=== PATIENT | female | born 1955 | race Caucasian/White ===

== ENCOUNTER → 2016-08-08 | Outpatient (CLI) | payer OTHER | END | disposition home or self-care (01) | LOC: C.PAPS 16:08 | PROVIDERS: ATTEND Family Medicine | DX: Z12.4 Encounter for screening for malignant neoplasm of cervix (principal) ==

== ENCOUNTER → 2017-02-03 | Outpatient (CLI) | payer OTHER ==
[2017-02-03 13:42] LABS: CHOLESTEROL/HDL RATIO 4.4
== END | disposition home or self-care (01) ==
LOC: C.LABMFLN 09:10
PROVIDERS: ATTEND Family Medicine
DX: E78.5 Hyperlipidemia, unspecified (principal)

== ENCOUNTER → 2017-08-23 | Outpatient (CLI) | payer OTHER ==
--- NOTE | 2017-08-23 16:41 | DIAGNOSTIC IMAGING REPORT ---
MRI OF THE RIGHT KNEE CLINICAL HISTORY: Right knee pain of several months duration. COMPARISON STUDY: No priors. TECHNIQUE: MRI of the right knee was performed utilizing proton density, T1, and T2-weighted sequences in the axial, sagittal, coronal planes. IV contrast was not administered for this examination. Note that interpretation is suboptimal without plain film correlate. FINDINGS: Menisci: The medial and lateral menisci are intact. Ligaments: The anterior and posterior cruciate ligaments are intact. There is fluid seen on both sides of the medial collateral ligament. The fibers are intact and this suggests grade 1 injury. The lateral collateral complex is within normal limits. Extensor mechanism: The extensor mechanism is intact. Hoffa's fat pad is normal in appearance. Articular cartilage and bone: The articular cartilage is intact and well maintained all 3 compartments. Normal marrow signal is preserved of the visualized bony structures. Joint effusion: None Soft tissues: The musculature surrounding the knee joint is normal in bulk and signal intensity. Mild soft tissue edema is suggested around the insertion of the medial head of the gastrocnemius tendon. IMPRESSION: 1. There is no evidence of meniscal injury in the right knee. The cruciate ligaments and the lateral collateral ligament complex are preserved. 2. Findings suggest grade 1 injury of the medial collateral alignment. 3. Mild edema is suggested around the insertion of the medial head of the gastrocnemius tendon. Correlate clinically for evidence of strain. The tendon and muscle appear intact. 4. No significant cartilage loss is identified. Electronically signed by: Douglas Powell M.D. 08/23/2017 4:39 PM Dictated Date/Time: 08/23/2017 4:33 PM
== END | disposition home or self-care (01) ==
LOC: C.MRI 14:34
DX: M25.561 Pain in right knee (principal)

== ENCOUNTER → 2017-10-25 | Outpatient (CLI) | payer OTHER ==
--- NOTE | 2017-10-26 07:51 | MAMMOGRAPHY REPORT ---
BILATERAL DIGITAL DIAGNOSTIC MAMMOGRAM TOMOSYNTHESIS WITH CAD AND TARGETED BILATERAL ULTRASOUND: 10/25 CLINICAL HISTORY: 62-year-old woman presents at time of annual bilateral screening examination. She recently underwent ultrasound-guided core biopsy of a mass in the 12:00 to 1:00 left breast, which mohawk elded benign pathology results and a six-month follow-up was also recommended. She has a remote hist ory of right breast excisional biopsy which the patient reports yielded atypia. Pathology reports ar e not currently available and are being requested. TECHNIQUE: Bilateral breast tomosynthesis in addition to standard 2D mammography was performed. Spot magnification right CC and MLO views were also obtained. Current study was also evaluated with a [employer] Learning[employer] Aided Detection (CAD) system. COMPARISON: Comparison is made to exams dated: 03/06/2017 mammogram, 02/21/2017 ultrasound, 02/14/2017 m ammogram, 08/15/2016 mammogram, 07/14/2015 mammogram, and 06/30/2014 [place] [facility] [place] BREAST COMPOSITION: There are scattered areas of fibroglandular density in both breasts. FINDINGS: There is a stable metallic biopsy marker clip in the 1:00 anterior left breast, denoting t he site of recent benign ultrasound-guided core biopsy. There are stable circumscribed subcentimeter masses scattered in the left breast both medially and laterally. A benign coarse calcification and stable benign-appearing round microcalcifications. No obvious spiculated or irregular mass, asymmetr y, area of architectural distortion or suspicious calcifications identified in the left breast. There are possible faint clustered amorphous microcalcifications and an associated focal asymmetry wi th architectural distortion in the upper outer anterior right breast for which additional spot magnif ication views and ultrasound were performed. The spot magnification views demonstrate very faint virginia rphous microcalcifications associated with an area of architectural distortion located 4 cm from the nipple in the right upper outer quadrant. The calcifications are better visualized on the full-field views, but very faint to visualize and difficult to measure, approximately 7 mm in diameter. No oth er obvious masses, calcifications, areas of architectural distortion or asymmetries identified in the right breast. Targeted ultrasound was performed in the left 12:00 to 1:00 breast to reevaluate the biopsied benign mass. It is no longer identified, concordant with the benign pathology results and no further follow -up is needed at this time. Additional targeted ultrasound was performed in the upper outer anterior right breast to assess for t he focal asymmetry with associated calcifications and distortion. There is an ill-defined isoechoic to hypoechoic mass with associated internal punctate reflectors and evidence of architectural distort ion in real-time scanning in the 11:00 right breast, 1 cm from the nipple, thought to correlate with the mammographic finding. Portions are ill-defined and therefore this lesion is difficult to measure but it is approximately 1.5 x 0.7 x 1.2 cm. This is suspicious for malignancy and definitive charac terization with an ultrasound-guided core biopsy including specimen radiography is recommended. In t he 9:00 right breast, 2 cm from the nipple, there is a small cluster of cysts versus cyst with thin i nternal nonvascular septations measuring 3.8 x 3.4 x 4.9 mm, which has a benign sonographic appearanc e. There is a hypoechoic mass with a few angular borders but generally gently lobulated in appearanc e measuring 4.6 x 4.1 x 9.0 mm, in the 11:00 right breast, 4 cm from the nipple. There are possible associated internal punctate reflectors which could represent calcifications. Given the solid nature , ultrasound-guided core biopsy is also recommended. IMPRESSION: ACR BI-RADS CATEGORY 4: SUSPICIOUS, TARGETED ULTRASOUND ACR BI-RADS CATEGORY 4: SUSPICIO US 1. Ultrasound-guided core biopsy is recommended for an ill-defined 1.5 cm mass with associated archi tectural distortion and internal calcification in the 11:00 right breast, 1 cm from the nipple, which correlates with the mammographic findings of distortion and calcifications. Specimen radiography sh ould be performed of the core biopsy samples from this mass. 2. Ultrasound-guided core biopsy is also recommended for an indeterminate solid 4.6 x 9.0 mm mass in the 11:00 right breast, 4 cm from the nipple. 3. At the time of ultrasound-guided biopsies in the right breast, right axillary ultrasound should a lso be performed to assess for any abnormal lymph nodes. 4. Stable postbiopsy changes in the left breast and stable mammographic appearance of the left breas t. The previously biopsied mass is no longer identified on ultrasound. 5. If pathology results in the right breast are malignant, would recommend a bilateral breast MRI pr ior to definitive treatment, given the multiple masses bilaterally and dense breasts. These results and recommendations were discussed with the patient at the time of the exam. She tenta tively scheduled the right breast biopsies prior to leaving the department. Approximately 10% of breast cancers are not detected with mammography. A negative mammographic report should not delay biopsy if a clinically suggestive mass is present. oNla Ballard M.D. ay/:10/25/2017 16:01:06 Director Of Search Engine Optimization: Tracy CARRINGTON(Saad)(M), [facility] letter sent: Abnormal 4/5 BI-RADS Code: ACR BI-RADS Category 4: Suspicious Ultrasound BI-RADS: ACR BI-RADS Category 4: Suspici ous
== END | disposition home or self-care (01) ==
LOC: C.MAMM 12:24
PROVIDERS: ATTEND Family Medicine
DX: N63.10 Unspecified lump in the right breast, unspecified quadrant (principal)

== ENCOUNTER → 2017-11-07 | Outpatient (CLI) | payer OTHER ==
--- NOTE | 2017-11-07 10:47 | Discharge Instructions ---
Discharge Instructions Procedure Procedure Date: Nov 07, 2017. Reason for visit: RIGHT BREAST MASS x2. Discharge Discharge Date: Nov 07, 2017. Discharge Diagnosis: post right breast ultrasound guided core biopsy x 2 Instructions Activity Recommendations: Additional Limitations (see below) Return to School/Work: no limitations Recommended Home Diet: No Limitations Provider Instructions: ACTIVITY RECOMMENDATIONS: * No lifting, pushing, pulling or exercising the affected side for three days. RETURN TO SCHOOL/WORK: * You may return to work/school after the procedure, but do not perform any strenuous activities for 24 to 48 hours. MEDICATIONS: * Tylenol (two 325 mg) every four to six hours if needed for mild pain (if not allergic to Tylenol). DIET: * Resume previous diet. SPECIAL CARE INSTRUCTIONS: * Keep biopsy site dry for 24 hours. May shower after 24 hours, but do not soak (bathe) incision. * May remove Tegaderm (plastic patch) tomorrow AFTER showering. * Leave the steri-strips on for one week. Allow the steri-strips to fall off by themselves. If not off after one week, you may remove them. You may place a Bandaid crosswise over the strips, if desired. * Apply ice 10 minutes on and 10 minutes off as needed. * Wear a bra at bedtime to sleep more comfortably for 2-3 days. * Your referring physician should have the results after approximately 5 to 7 business days. * Call for unusual bleeding, fever, drainage, etc or if you have any questions call [phone] during normal business hours or after hours call Dr Ballard, . FOLLOW UP VISIT: Follow-up with Referring Physician as scheduled. Harley Campoverde Recommendations: Call your doctor if: * Temperature above 101 degrees * Pain not relieved by pain medicine ordered * There is increased drainage or redness from any incision * You have any unanswered questions or concerns. Your Doctors Instructions noted above were prepared by provider Nola Ballard. Patient Signature Section: Patient Instructions Signature Page Bri Umana Patient (or Guardian) Signature/Date: I have read and understand the instructions given to me by my caregivers. Caregiver/RN/Doctor Signature/Date: The above-named patient and/or guardian has received patient instructions on this date. + Original Patient Signature Page (only) stays with chart. Please make copy for patient.
--- NOTE | 2017-11-07 12:52 | MAMMOGRAPHY REPORT ---
SPECIMEN RIGHT BREAST: 11/07/2017 CLINICAL HISTORY: Core biopsy specimen from the mass with associated microcalcification in the 11:00 axis, 1 cm from the nipple, to ensure inclusion of microcalcification within the samples. Please refer to the report from right breast ultrasound-guided core biopsy performed at the same time for full detail. IMPRESSION: SPECIMEN Please refer to the report from right breast ultrasound-guided core biopsy performed at the same time for full detail. Nola Ballard M.D. ay/:11/07/2017 10:58:05 Truck Jumper: Tracy North, [facility]
--- NOTE | 2017-11-07 12:52 | MAMMOGRAPHY REPORT ---
ULTRASOUND GUIDED BIOPSY RIGHT BREAST: 11/07/2017 CLINICAL HISTORY: Indeterminate 5 mm mass with probable associated calcification in the 11:00 right b reast, 4 cm from the nipple. Patient presents for biopsy. Patient also underwent biopsy of a spicul ated mass with associated calcification in the 11:00 axis, 1 cm from the nipple during the same appoi ntment. Please refer to the report from right breast ultrasound-guided core biopsy performed at the same time for full detail. IMPRESSION: ULTRASOUND GUIDED BIOPSY Please refer to the report from right breast ultrasound-guided core biopsy performed at the same time for full detail. Nola Ballard M.D. ay/:11/07/2017 10:59:22 Scrap Baler: Tracy North, [facility]
--- NOTE | 2017-11-07 15:26 | MAMMOGRAPHY REPORT ---
UNILATERAL RIGHT DIGITAL DIAGNOSTIC MAMMOGRAM TOMOSYNTHESIS WITH CAD: 11/07/2017 CLINICAL HISTORY: Status post ultrasound guided core biopsy of 2 indeterminate masses in the right br east at 11:00 1 cm and 4 cm from the nipple. Patient has a history of biopsy-proven atypia in the ri ght breast and recent ultrasound-guided core biopsy in the left breast which yielded benign results. Please refer to the report from right breast ultrasound-guided core biopsy performed at the same time for full detail. IMPRESSION: POST PROCEDURE IMAGING FOR MARKER PLACEMENT Please refer to the report from right breast ultrasound-guided core biopsy performed at the same time for full detail. Approximately 10% of breast cancers are not detected with mammography. A negative mammographic report should not delay biopsy if a clinically suggestive mass is present. Nola Ballard M.D. ay/:11/07/2017 13:17:31 Fingerprint Clerk: Tracy North, [facility] BI-RADS Code: Post Procedure Imaging For Marker Placement
--- NOTE | 2017-11-07 15:26 | MAMMOGRAPHY REPORT ---
THIS REPORT HAS BEEN AMENDED. MULTIPLE ULTRASOUND GUIDED BIOPSIES RIGHT BREAST: 11/07/2017 CLINICAL HISTORY: Suspicious 1.5 cm mass with associated architectural distortion and calcification i n the 11:00 right breast 1 cm from the nipple and indeterminate 5 x 9 mm hypoechoic mass with possibl e associated microcalcification in the 11:00 right breast, 4 cm from the nipple. Patient presents fo r right breast ultrasound-guided core biopsy 2. COMPARISON: Comparison is made to exams dated: 11/07/2017 specimen, 10/25/2017 mammogram - [facility], 03/06/2017 mammogram, 02/21/2017 ultrasound, 07/14/2015 mammogram, and 06/30/2014 mamm ogram - [facility]. PATIENT CONSENT: The procedure, risks and benefits were discussed with the patient and informed conse nt was obtained both verbally and in writing. Specific risks to this procedure include: bleeding, in fection, puncture of adjacent structure, nontarget biopsy, sampling error, pain, metal allergy and me dication reaction. A time out was performed and the right breast was agreed as the site of biopsy. PROCEDURE DESCRIPTION: Prior to biopsy, targeted ultrasound was performed in the right axilla, which demonstrates a morphologically normal lymph node with cortical thickness within the range of normal a t 2.3 mm. No suspicious lymphadenopathy was identified. Then repeat targeted ultrasound was performed in the 11:00 right breast. The spiculated and irregula r hypoechoic mass with associated architectural distortion and calcification is again identified 1 cm from the nipple, and the oval hypoechoic mass with associated calcification in the 11:00 right breas t, 4 cm from the nipple is also again identified. The dominant spiculated mass is the first target f or biopsy. The skin was prepped and draped in the usual sterile fashion. While visualizing the spiculated 1.5 c m mass with associated calcification, subcutaneous and intraparenchymal 1% buffered lidocaine, with a nd without epinephrine, was administered as local anesthesia. A skin incision was made. Through the incision, 4 samples were taken with a 12 gauge SeaMicro biopsy device. A specimen radiograph was obtain ed of the core biopsy samples, which does demonstrate microcalcifications with in the specimen, confi rming adequate tissue sampling. Therefore a ribbon shaped metallic marker was placed at the biopsy s ite. Hemostasis was achieved after manual compression but bruising and ecchymosis was already noted, superior to the biopsy incision during the biopsy. The patient tolerated the procedure well and there was no immediate complication. Then the smaller 5 x 9 mm hypoechoic mass with probable associated calcification in the 11:00 right b reast, 4 cm from the nipple was identified and targeted for biopsy. Additional 1% buffered lidocaine, with and without epinephrine, was administered as local anesthesia. A skin incision was made. Throu gh the incision, 6 samples were taken with a 14 gauge Achieve biopsy device. A wing shaped metallic m arker was placed at the biopsy site. Hemostasis was achieved after manual compression. The patient to lerated the procedure well and there was no immediate complication. All of the samples were sent to the pathology department in an appropriately labeled containers. Postprocedure right CC and ML tomosynthesis images were obtained. A new ribbon-shaped biopsy marker clip is identified in the upper outer anterior right breast, centrally within an area of focal ambreen ectural distortion. A wing-shaped biopsy marker clip is also seen and there is a postbiopsy hematoma surrounding both biopsy marker clips measuring approximately 3 x 4 cm. The patient could not tolera te firm pressure after the biopsy. IMPRESSION: ULTRASOUND GUIDED BIOPSY Status post ultrasound-guided core biopsy of 2 indeterminate masses in the right 11:00 breast, with b iopsy marker is placed at each site. The patient will receive notification of the results from her referring physician. Nola Ballard M.D. ay/:11/07/2017 13:25:59 Door Liner: Tracy North, [facility] AMENDMENT: 11/08/2017 Nola Ballard M.D. Pathology results from the ultrasound-guided core biopsy of a hypoechoic mass with associated archite ctural distortion and calcification in the 11:00 right breast, 1 cm from the nipple yielded infiltrat ing lobular carcinoma, grade 1/3. Lobular carcinoma in situ. No perineural or lymphvascular space invasion identified. Estrogen and progesterone receptor positive. HER-2/leesa equivocal. Pathology results from biopsy of a circumscribed hypoechoic mass in the 11:00 right breast, 4 cm from the nipple yielded infiltrating lobular carcinoma, grade 1/3. Also a fibroadenoma. No perineural o r lymphvascular space invasion identified. Estrogen and progesterone receptor positive. HER-2/leesa equivocal. The pathology results from both biopsies are concordant with the imaging appearance. Given the patho logic finding of lobular carcinoma, heterogeneously dense breasts and multiple bilateral breast yuly s, would recommend further evaluation with a breast MRI, prior to definitive treatment to further ass ess extent of disease and possibility of contralateral disease. It should be noted that the biopsy m arker clips are located 3.6 cm from each other in the CC plane.
== END | disposition home or self-care (01) ==
LOC: C.MAMM 09:37
PROVIDERS: ATTEND Family Medicine
DX: C50.911 Malignant neoplasm of unspecified site of right female breast (principal)

== ENCOUNTER → 2017-11-23 | Outpatient (CLI) | payer OTHER ==
--- NOTE | 2017-11-23 13:57 | DIAGNOSTIC IMAGING REPORT ---
CHEST 2 VIEWS ROUTINE CLINICAL HISTORY: ] Breast carcinoma COMPARISON STUDY: No previous studies for comparison. FINDINGS: The cardiac and mediastinal contours are normal. There is no evidence of focal pulmonary consolidation. There is no evidence of failure. No pleural effusions are visualized.[ IMPRESSION: No active disease in the chest. Electronically signed by: Donovan Balnc M.D. 11/23/2017 1:55 PM Dictated Date/Time: 11/23/2017 1:55 PM
[2017-11-23 14:45] LABS: BASO % 0.5 %; BASO ABS # 0.03 K/uL (0-0.2); EOS % 1.4 %; EOS ABS # 0.09 K/uL (0-0.5); HEMATOCRIT 42.7 % (37-47); HEMOGLOBIN 14.4 g/dL (12.0-16.0); IG# 0.01 K/uL (0.00-0.02); LYMPH % 32.1 %; MEAN CELL VOLUME 88.2 fL (80-100); MEAN CORPUSCULAR HEMOGLOBIN 29.8 pg (25-34); MEAN CORPUSCULAR HGB CONC 33.7 g/dl (32-36); MEAN PLATELET VOLUME 10.3 fL (7.4-10.4); MONO % 7.5 %; MONO ABS # 0.47 K/uL (0.11-0.59); NEUT % 58.3 %; NEUT ABS # 3.63 K/uL (1.4-6.5); PLATELET COUNT 286 K/uL (130-400); RED CELL DISTRIBUTION WIDTH SD 41.9 fL (36.4-46.3); WHITE BLOOD COUNT 6.23 K/uL (4.8-10.8)
[2017-11-23 15:09] LABS: ALBUMIN 3.8 gm/dl (3.4-5.0); BLOOD UREA NITROGEN 12 mg/dl (7-18); CALCIUM 9.2 mg/dl (8.5-10.1); CARBON DIOXIDE 29 mmol/L (21-32); CREATININE 0.92 mg/dl (0.60-1.20); GLUCOSE 99 mg/dl (70-99); POTASSIUM 3.6 mmol/L (3.5-5.1); SODIUM 139 mmol/L (136-145)
[2017-11-23 15:18] LABS: ALKALINE PHOSPHATASE 98 U/L (45-117); ALT/SGPT 30 U/L (12-78); AST/SGOT 17 U/L (15-37); TOTAL PROTEIN 7.6 gm/dl (6.4-8.2)
== END | disposition home or self-care (01) ==
LOC: C.RAD 13:25
PROVIDERS: ATTEND Specialist
DX: C50.411 Malignant neoplasm of upper-outer quadrant of right female breast (principal); Z17.0 Estrogen receptor positive status [ER+]